=== PATIENT | male | born 1940 | race Caucasian/White ===

== ENCOUNTER 2017-12-07 18:12 | Inpatient (IN) | payer OTHER, MEDICARE ==
[~2017-12-07] VITALS: Ht 177.8 cm; Wt 94.5 kg
[~2017-12-07 18:12] MED LIST: ATOR20TA PO; BENA25TA8 PO; DIGO.125 PO; HYDR-3129 PO; LANTINJ SC; NOVO7030P2 SQ; PARO40TA PO; TERA5CAP3 PO
[2017-12-07 18:40] VITALS: BP 166/53; PULSE 50; RESP 18; TEMP 98.6; O2SAT 99
[2017-12-07 18:50] LABS: AUTOMATED NEUTROPHIL # 5.6 TH/MM3 (1.8-7.7); BASOPHIL % 0.4 % (0.0-2.0); EOSINOPHIL # 0.3 TH/MM3 (0-0.4); EOSINOPHIL % 2.7 % (0.0-4.0); HEMATOCRIT 33.1 % (39.0-51.0); HEMOGLOBIN 11.6 GM/DL (13.0-17.0); LYMPH % 32.4 % (9.0-44.0); LYMPHOCYTE # 3.1 TH/MM3 (1.0-4.8); MEAN CELL VOLUME 97.9 FL (80.0-100.0); MEAN CORPUSCULAR HEMOGLOBIN 34.3 PG (27.0-34.0); MEAN PLATELET VOLUME 7.7 FL (7.0-11.0); MONO % 6.1 % (0.0-8.0); MONOCYTE # 0.6 TH/MM3 (0-0.9); NEUT % 58.4 % (16.0-70.0); PLATELET COUNT 154 TH/MM3 (150-450); RED BLOOD COUNT 3.38 MIL/MM3 (4.50-5.90); RED CELL DISTRIBUTION WIDTH 13.5 % (11.6-17.2); WHITE BLOOD COUNT 9.6 TH/MM3 (4.0-11.0)
[2017-12-07 18:57] LABS: ALBUMIN 3.4 GM/DL (3.4-5.0); AST (GOT) 22 U/L (15-37); BICARBONATE 23.6 MEQ/L (21.0-32.0); BLOOD UREA NITROGEN 25 MG/DL (7-18); CALCIUM 8.9 MG/DL (8.5-10.1); CHLORIDE 107 MEQ/L (98-107); CREATININE 1.84 MG/DL (0.60-1.30); GLOMERULAR FILTRATION RATE 36 ML/MIN (>89); GLUCOSE,RANDOM 260 MG/DL (74-106); SODIUM (NA) 138 MEQ/L (136-145)
[2017-12-07 18:58] LABS: ALT (GPT) 21 U/L (12-78)
[2017-12-07 19:00] LABS: ALKALINE PHOSPHATASE 89 U/L (45-117); TOTAL BILIRUBIN ADULT 0.3 MG/DL (0.2-1.0)
--- NOTE | 2017-12-07 19:44 | PD ---
HPI Chief Complaint: Psychiatric Symptoms Time Seen by Provider: 19:20 Travel History International Travel<30 days: No Contact w/Intl Traveler<30days: No Traveled to known affect area: No History of Present Illness HPI 77-year-old white male presents emergency Department under [employer] act by PD. Patient states that he had just gotten home from [facility] this week after being evaluated for several days for dizziness. He states that he has also had some exertional dyspnea. He was evaluated by Dr. Swanson in the hospital. He was medically cleared and released and went home. Patient stated to his that he would rather than feel dizzy and short of breath at times. He has a 45 caliber handgun. The [employer] act stated that it would only take one bullet. The patient here denies any true suicidal ideation. No homicidal ideation. He does admit to dyspnea with exertion as well as dizziness. He reports it as a vertigo type room spinning. He denies any chest pain. No nausea vomiting. No abdominal pain. No urinary symptoms. No toxic ingestions. He states it is been compliant with his medications. 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) Endocrine: Yes Gastrointestinal Disorders: Yes (HX COLON CANCER ) GERD: No Glaucoma: No Genitourinary: Yes (ENLARGED PROSTATE; UTI ) Headaches: No Hepatitis: No Hiatal Hernia: No Hypertension: Yes Immune Disorder: No Implanted Vascular Access Dvce: Yes Kidney Stones: No Musculoskeletal: Yes (ARTHRITIS ) Neurologic: Yes (PAIN RADIATING TO LEFT LEG) Psychiatric: Yes (DEPRESSION) Reproductive: No Respiratory: No Migraines: No Myocardial Infarction: No Radiation Therapy: No Renal Failure: No Seizures: No Sleep Apnea: No Thyroid Disease: No Ulcer: No Tetanus Vaccination: < 5 Years Past Surgical History Abdominal Surgery: Yes (COLON SURGERY, CHOLECYSTECTOMY) AICD: No Appendectomy: No Arteriovenous Shunt: No Body Medical Devices: NONE Cardiac Surgery: No Cholecystectomy: Yes Ear Surgery: No Endocrine Surgery: No Eye Surgery: No Genitourinary Surgery: No Gynecologic Surgery: No Insulin Pump: No Joint Replacement: No Neurologic Surgery: Yes (LUMBAR SPAINE PARTIAL LAMINECTOMY) Oral Surgery: No Pacemaker: No Thoracic Surgery: No Other Surgery: Yes Social History Alcohol Use: No Tobacco Use: No Substance Use: No Allergies-Medications (Allergen,Severity, Reaction): Coded Allergies: No Known Allergies (Verified , 11/09/13) Reported Meds & Prescriptions Reported Meds & Active Scripts Active Reported Benadryl (Diphenhydramine HCl) 25 Mg Tab 25 Mg PO DAILY Lantus Solostar (Insulin Glargine) 100 Units/Ml Vial 30 Units SC HS Hazel 10/325 (Hydrocodone-Acetaminophen) 10 Mg/325 Mg Tab 1 Tab PO Q6H PRN 10/500 Atorvastatin Calcium 20 Mg Tab 20 Mg PO HS Terazosin Hcl (Terazosin HCl) 5 Mg Cap 5 Mg PO BID Novolin 70/30 (Insulin Human Isoph/Insulin Regular) 100 Units/Ml Inj 60 SQ DAILY@1600 Lanoxin (Digoxin) 0.125 Mg Tab 0.125 Mg PO DAILY Paxil (Paroxetine HCl) 40 Mg Tab 60 Mg PO DAILY Novolin 70/30 (Insulin Human Isoph/Insulin Regular) 100 Units/Ml Inj 90 Units SQ DAILY Review of Systems Except as stated in HPI: all other systems reviewed are Neg General / Constitutional: No: Fever, Chills Eyes: No: Blurred Vision, Photophobia HENT: No: Sore Throat, Congestion Cardiovascular: Positive: Dyspnea on exertion, No: Chest Pain or Discomfort, Diaphoresis Respiratory: Positive: Shortness of Breath, No: Cough Gastrointestinal: No: Nausea, Vomiting Genitourinary: No: Hematuria Musculoskeletal: Positive: Arthralgias Skin: Positive Rash (bruising) Psychiatric: Positive: Depression, Mood Disorder, No: Anxiety, Suicidal Ideations, Disorder of Thought, Substance Abuse, Homicidal Ideation Physical Exam Narrative GENERAL: Well-nourished, well-developed patient. SKIN: Warm and dry. Patient has an abrasion to the right wrist from handcuffs with bruising. HEAD: Normocephalic and atraumatic. EYES: No scleral icterus. No injection or drainage. ENT: No nasal drainage noted. Mucous membranes pink. Airway patent. NECK: Supple, trachea midline. Moves head freely without obvious discomfort. CARDIOVASCULAR: Regular rate and rhythm loud blowing aortic and mitral murmurs, no gallops, or rubs. RESPIRATORY: Breath sounds equal bilaterally. No accessory muscle use. GASTROINTESTINAL: Abdomen soft, non-tender, nondistended. Old surgical scar in the right abdomen EXTREMITIES: No cyanosis or edema. Old scar right upper arm BACK: Nontender without obvious deformity. No CVA tenderness. NEURO: Patient is alert and oriented. no sensorimotor deficits. Nonfocal. Normal speech. PSYCH: No delusions. No auditory or visual hallucinations. Data Data Last Documented VS Vital Signs Date Time Temp Pulse Resp B/P (MAP) Pulse Ox O2 Delivery O2 Flow Rate FiO2 12/07/17 18:40 98.6 50 18 166/53 (90) 99 Orders Orders Complete Blood Count With Diff (12/07/17 18:21) Comprehensive Metabolic Panel (12/07/17 18:21) Psych Screen (12/07/17 18:21) Labs Laboratory Tests Test 12/07/17 18:35 White Blood Count 9.6 TH/MM3 Red Blood Count 3.38 MIL/MM3 Hemoglobin 11.6 GM/DL Hematocrit 33.1 % Mean Corpuscular Volume 97.9 FL Mean Corpuscular Hemoglobin 34.3 PG Mean Corpuscular Hemoglobin Concent 35.0 % Red Cell Distribution Width 13.5 % Platelet Count 154 TH/MM3 Mean Platelet Volume 7.7 FL Neutrophils (%) (Auto) 58.4 % Lymphocytes (%) (Auto) 32.4 % Monocytes (%) (Auto) 6.1 % Eosinophils (%) (Auto) 2.7 % Basophils (%) (Auto) 0.4 % Neutrophils # (Auto) 5.6 TH/MM3 Lymphocytes # (Auto) 3.1 TH/MM3 Monocytes # (Auto) 0.6 TH/MM3 Eosinophils # (Auto) 0.3 TH/MM3 Basophils # (Auto) 0.0 TH/MM3 CBC Comment DIFF FINAL Differential Comment Blood Urea Nitrogen 25 MG/DL Creatinine 1.84 MG/DL Random Glucose 260 MG/DL Total Protein 7.0 GM/DL Albumin 3.4 GM/DL Calcium Level 8.9 MG/DL Alkaline Phosphatase 89 U/L Aspartate Amino Transf (AST/SGOT) 22 U/L Alanine Aminotransferase (ALT/SGPT) 21 U/L Total Bilirubin 0.3 MG/DL Sodium Level 138 MEQ/L Potassium Level 4.5 MEQ/L Chloride Level 107 MEQ/L Carbon Dioxide Level 23.6 MEQ/L Anion Gap 7 MEQ/L Estimat Glomerular Filtration Rate 36 ML/MIN MDM Medical Decision Making Medical Screen Exam Complete: Yes Emergency Medical Condition: Yes Medical Record Reviewed: Yes Interpretation(s) Laboratory Tests Test 12/07/17 18:35 White Blood Count 9.6 TH/MM3 Red Blood Count 3.38 MIL/MM3 Hemoglobin 11.6 GM/DL Hematocrit 33.1 % Mean Corpuscular Volume 97.9 FL Mean Corpuscular Hemoglobin 34.3 PG Mean Corpuscular Hemoglobin Concent 35.0 % Red Cell Distribution Width 13.5 % Platelet Count 154 TH/MM3 Mean Platelet Volume 7.7 FL Neutrophils (%) (Auto) 58.4 % Lymphocytes (%) (Auto) 32.4 % Monocytes (%) (Auto) 6.1 % Eosinophils (%) (Auto) 2.7 % Basophils (%) (Auto) 0.4 % Neutrophils # (Auto) 5.6 TH/MM3 Lymphocytes # (Auto) 3.1 TH/MM3 Monocytes # (Auto) 0.6 TH/MM3 Eosinophils # (Auto) 0.3 TH/MM3 Basophils # (Auto) 0.0 TH/MM3 CBC Comment DIFF FINAL Differential Comment Blood Urea Nitrogen 25 MG/DL Creatinine 1.84 MG/DL Random Glucose 260 MG/DL Total Protein 7.0 GM/DL Albumin 3.4 GM/DL Calcium Level 8.9 MG/DL Alkaline Phosphatase 89 U/L Aspartate Amino Transf (AST/SGOT) 22 U/L Alanine Aminotransferase (ALT/SGPT) 21 U/L Total Bilirubin 0.3 MG/DL Sodium Level 138 MEQ/L Potassium Level 4.5 MEQ/L Chloride Level 107 MEQ/L Carbon Dioxide Level 23.6 MEQ/L Anion Gap 7 MEQ/L Estimat Glomerular Filtration Rate 36 ML/MIN Differential Diagnosis MDM: High Differential diagnoses: Schizophrenia, schizoaffective disorder, bipolar, anxiety, depression, adjustment reaction, mood disorder NOS, ODD, depressive disorder NOS, dementia, dementia with agitation, psychosis NOS, substance induced mood disorder, DMDD, Asperger syndrome, infection,electrolyte abnormality, malingering. Narrative Course Mental health screening discussed with the patient. Psychiatric screen ordered. The patient is been medically cleared. He is oriented been evaluated at [facility] for his complaints of dizziness and dyspnea. 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 I see no reason for any additional lab testing at this time. This is medical clearance for psychiatric admission Diagnosis Primary Impression: Medical clearance for psychiatric admission Condition: Russell Perez Dec 07, 2017 19:44
[2017-12-07] MEDS ORDERED: LANTUS2P SQ (21:31)
[2017-12-07] MEDS ORDERED: CART120C PO (21:31)
[2017-12-07] MEDS ORDERED: PARO7.5C PO (21:31)
[2017-12-07] MEDS ORDERED: ASPI-516 CHEW (21:31)
[2017-12-07] MEDS ORDERED: ATOR20TA15 PO (21:31)
[2017-12-07] MEDS ORDERED: NOVORP2 SQ (21:31)
[2017-12-08] MEDS ORDERED: hydrOXYzine HCL 50 MG TAB PO PRN (00:15)
[2017-12-08] MEDS ORDERED: ACETAMINOPHEN 325 MG TAB PO PRN (00:15)
[2017-12-08] MEDS ORDERED: diphenhydrAMINE HCL 50 MG/ML VIAL IM PRN (00:15)
[2017-12-08] MEDS ORDERED: diphenhydrAMINE HCL 50 MG CAP PO PRN (00:15)
[2017-12-08] MEDS ORDERED: GLUCAGON 1 MG/ML VIAL OTHER PRN (00:15)
[2017-12-08] MEDS ORDERED: diphenhydrAMINE HCL 50 MG CAP - HS PRN PO (00:15)
[2017-12-08] MEDS ORDERED: diphenhydrAMINE HCL 50 MG/ML VIAL - HS PRN IM (00:15)
[2017-12-08] MEDS ORDERED: DEXTROSE 50% IN WATER 50 ML VIAL(D50) IV PUSH PRN (00:15)
[2017-12-08] MEDS ORDERED: MAGNESIUM HYDROXIDE SUSP 30 ML CUP PO PRN (00:15)
[2017-12-08] MEDS ORDERED: ALUMINUM/MAGNESIUM/SIMETH 30 ML CUP PO PRN (00:15)
[2017-12-08 02:30] VITALS: BP 180/76; PULSE 62; RESP 18; TEMP 97.9; O2SAT 97
[2017-12-08 06:00] VITALS: BP 158/66; PULSE 59; RESP 18; TEMP 98; O2SAT 97
[2017-12-08] MEDS: LOW DOSE INSULIN NOVOLOG SUPPLEMENTAL SCALE SQ SCH ×4 (08:00→20:59)
[2017-12-08] MEDS: NICOTINE 21 MG/24 HR PATCH T-DERMAL SCH (09:00)
[2017-12-08] MEDS: ASPIRIN 81 MG CHEW TAB CHEW SCH (09:52)
[2017-12-08 10:03] LABS: BICARBONATE 27.3 MEQ/L (21.0-32.0); BLOOD UREA NITROGEN 20 MG/DL (7-18); CALCIUM 9.1 MG/DL (8.5-10.1); CHLORIDE 108 MEQ/L (98-107); CREATININE 1.55 MG/DL (0.60-1.30); GLOMERULAR FILTRATION RATE 43 ML/MIN (>89); GLUCOSE,RANDOM 83 MG/DL (74-106); SODIUM (NA) 141 MEQ/L (136-145)
[2017-12-08 10:04] LABS: CHOLESTEROL 132 MG/DL (120-200); TRIGLYCERIDES 94 MG/DL (42-150)
[2017-12-08 10:12] LABS: CHOLESTEROL/ HDL RATIO 2.35 RATIO; LDL CHOLESTEROL 57 MG/DL (0-99)
[2017-12-08 14:52] LABS: HEMOGLOBIN A1C 8.9 % (4.3-6.0)
[2017-12-08] MEDS ORDERED: ASPIRIN 81 MG CHEW TAB CHEW SCH (15:45)
[2017-12-08] MEDS ORDERED: PILL SPLITTER OTHER PRN (16:00)
[2017-12-08] MEDS: PARoxetine HCL 20 MG TAB PO SCH (16:50)
--- NOTE | 2017-12-08 18:38 | HHI.HP ---
Provisional Diagnosis Admission Date Dec 07, 2017 at 23:54 [place] I. Adjustment disorder with depressed mood Certification of Person's Competence To Provide Express and Informed Consent I have personally examined Russell Su , a person being served at [facility] on, Dec 08, 2017 18:24. Express and informed consent means consent voluntarily given in writing, by a competent person, after sufficient explanation and disclosure of the subject matter involved to enable the person to make a knowing and willful decision without any element of force, fraud, deceit, duress, or other form of constraint or coercion. This person is 18 years of age or older, is not now known to be incompetent to consent to treatment with a guardian advocate, and does not have a health care surrogate or proxy currently making medical treatment decisions. I have found this person to be one of the following: [xxx] Competent to provide express and informed consent, as defined above, for voluntary admission to this facility and is competent to provide express and informed consent for treatment. He/she has the consistent capacity to make well reasoned, willful, and knowing decisions concerning his or her medical or mental health treatment. The person fully and consistently understands the purpose of the admission for examination/placement and is fully capable of personally exercising all rights [place] Incompetent to provide express and informed consent to voluntary admission, and this is incompetent to provide express and informed consent to treatment. The person must be transferred to involuntary status and a petition for a guardian advocate filed with the Circuit Court. [] Refusing to provide express and informed consent to voluntary admission but is competent to provide express and informed consent for treatment. The person must be discharged or transferred to involuntary status. Form shall be completed within 24 hours of a person's arrival at the receiving facility and filed in the clinical record of each person: 1. Admitted on a voluntary basis 2. Permitted to provide express and informed consent to his/her own treatment 3. Allowed to transfer from involuntary to voluntary status 4. Prior to permitting a person to consent to his or her own treatment after having been previously found incompetent to consent to treatment. History of Present Illness Capacity: Has Capacity HPI Patient is a 37-year-old man, , , has access to firearms in the home, with a past psychiatric history of depression, no previous psychiatric admissions, suicide attempts or self-injurious behavior, no substance use history, past medical history significant for A. fib, history of colon cancer, diabetes, who was brought in under [employer] act by police after patient had stated that he would rather than feel dizzy when she was recently discharged from [facility] for workup for the same and patient was admitted to the inpatient psychiatry unit for further evaluation and manage her bed, cooperative. Patient is alert and oriented 3, stated that he was recently on the medical floor 1 week ago and after having been discharged he stated that he continued to have dizziness and stated to his "I do not want to live like this, I do not want to live if my head is spinning". Patient states that his had called police concerned about his statements which she was brought to the hospital for further evaluation under [employer] act. Patient reports that prior to his admission he has had adequate sleep, no difficulty or change in appetite, energy or concentration but states that he is "always depressed" and at this time states that his mood is "good" denying any suicide ideations but does admit to feeling "wishing to be "" at times. He reports that stressors at this time that made him feel this way are financial difficulties and missing his children. Family psychiatric history: Denies Past psychiatric history: no prior psychiatric diagnosis, no prior psychiatric admissions, no prior suicide attempt or self injury behavior. No reported previous medication trials. No outpatient mental health provider at this time. Substance use history: Denies Past medical history: A. fib, history of colon cancer, diabetes Allergies: NKDA Social history: , , has access to firearms in the home, no legal history Collateral contact: -Reina Su: [phone] Review of Systems Except as stated in HPI: all other systems reviewed are Neg Past Psych History Psychological trauma history Denies Violence risk - others (6 mos) Low Violence risk - self (6 mos) Elevated due to recent statements of not wanting to be alive Substance Abuse History Drugs/Alcohol past 12 months Denies Past Family Social History Coded Allergies: No Known Allergies (Verified Allergy, Unknown, 12/08/17) Reported Medications Insulin Human Regular Inj (Novolin R Inj) 1,000 Unit/10 Ml Vial, SQ ONCE for Blood Sugar Management, #1 INJECTION 0 Refills 12/07/17 Insulin Glargine Inj (Lantus Inj) 1,000 Unit/10 Ml Vial, SQ HS for Blood Sugar Management, VIAL 0 Refills 12/07/17 Paroxetine (Paroxetine) 7.5 Mg Capsule, PO DAILY, CAP 0 Refills 12/07/17 Atorvastatin (Atorvastatin) 20 Mg Tab, 20 MG PO HS for Cholesterol Management, # 30 TAB 0 Refills 12/07/17 Aspirin (Aspirin) 81 Mg Chew, 81 MG CHEW DAILY, TAB 0 Refills 12/07/17 Diltiazem ER 24 HR (Cartia Xt) 120 Mg Caper, 120 MG PO DAILY, #30 CAP 0 Refills 12/07/17 Discontinued Reported Medications Diphenhydramine 25 mg tab (Benadryl 25 mg tab) 25 Mg Tab, 25 MG PO DAILY, TAB 11/01/13 Insulin Glargine (Solostar) Pen (Lantus Solostar Pen) 100 Units/Ml Vial, 30 UNITS SC HS, VIAL 11/01/13 Hydrocodone-Acetaminophen 10-325 mg ([place] 10-325 mg) 10 Mg/325 Mg Tab, 1 TAB PO Q6H Y, TAB 10/500 11/01/13 Atorvastatin 20 mg (Atorvastatin 20 mg tab) 20 Mg Tab, 20 MG PO HS, TAB 11/01/13 Terazosin Hcl (Terazosin Hcl) 5 Mg Cap, 5 MG PO BID, CAP 11/01/13 Insulin Human Isophan/Regular (Novolin 70/30) 100 Units/Ml Inj, 60 SQ DAILY@ 1600, #10 ML 07/04/11 Digoxin (Lanoxin) 0.125 Mg Tab, 0.125 MG PO DAILY 07/04/11 Paroxetine Hcl (Paxil) 40 Mg Tab, 60 MG PO DAILY 12/14/10 Insulin Human Isophan/Regular (Novolin 70/30) 100 Units/Ml Inj, 90 UNITS SQ DAILY, #10 ML 07/04/11 Current Medications Medications (Trade) Dose Ordered Sig/Lisbet Route Start Time Stop Time Status Last Admin (Atarax) 50 mg Q6H PRN PO 12/08/17 00:15 (Benadryl) 50 mg Q6H PRN PO 12/08/17 00:15 (Benadryl Inj) 50 mg Q6H PRN IM 12/08/17 00:15 (Benadryl) 50 mg HS PRN PO 12/08/17 00:15 (Benadryl Inj) 50 mg HS PRN IM 12/08/17 00:15 (Tylenol) 650 mg Q4H PRN PO 12/08/17 00:15 (Milk Of Magnesia Liq) 30 ml DAILY PRN PO 12/08/17 00:15 (Mag-Al Plus Susp Liq) 30 ml Q6H PRN PO 12/08/17 00:15 (Habitrol 21 Mg Patch.24 Hr) 1 patch DAILY T-DERMAL 12/08/17 09:00 Miscellaneous Information 1 HS T-DERMAL 12/08/17 21:00 (D50w (Vial) Inj) 50 ml UNSCH PRN IV PUSH 12/08/17 00:15 (Glucagon Inj) 1 mg UNSCH PRN OTHER 12/08/17 00:15 (NovoLOG SUPPLEMENTAL SCALE) 1 ACHS SLIDING SCALE SQ 12/08/17 08:00 12/08/17 11:29 (Aspirin Chew) 81 mg DAILY CHEW 12/08/17 09:00 12/08/17 09:52 (Paxil) 10 mg DAILY PO 12/08/17 15:45 12/08/17 16:50 (Lipitor) 20 mg HS PO 12/08/17 21:00 (Cardizem Cd) 120 mg DAILY PO 12/09/17 09:00 (Pill Splitter) 1 ea UNSCH PRN OTHER 12/08/17 16:00 Family Psych History Denies Social History , , has access to firearms in the home, no legal history Patient's Strengths (min. 2) Verbal and communicative Physical Exam Patient found to be in no acute distress, no noted gross motor abnormalities, no tremors of EPS, no noted psychomotor agitation of retardation. Vital Signs Vital Signs Date Time Temp Pulse Resp B/P (MAP) Pulse Ox O2 Delivery O2 Flow Rate FiO2 12/08/17 06:00 98.0 59 18 158/66 (96) 97 Lab Results Labs reviewed Test 12/07/17 18:35 12/08/17 00:27 12/08/17 08:10 White Blood Count 9.6 TH/MM3 Red Blood Count 3.38 MIL/MM3 Hemoglobin 11.6 GM/DL Hematocrit 33.1 % Mean Corpuscular Volume 97.9 FL Mean Corpuscular Hemoglobin 34.3 PG Mean Corpuscular Hemoglobin Concent 35.0 % Red Cell Distribution Width 13.5 % Platelet Count 154 TH/MM3 Mean Platelet Volume 7.7 FL Neutrophils (%) (Auto) 58.4 % Lymphocytes (%) (Auto) 32.4 % Monocytes (%) (Auto) 6.1 % Eosinophils (%) (Auto) 2.7 % Basophils (%) (Auto) 0.4 % Neutrophils # (Auto) 5.6 TH/MM3 Lymphocytes # (Auto) 3.1 TH/MM3 Monocytes # (Auto) 0.6 TH/MM3 Eosinophils # (Auto) 0.3 TH/MM3 Basophils # (Auto) 0.0 TH/MM3 CBC Comment DIFF FINAL Differential Comment Blood Urea Nitrogen 25 MG/DL 20 MG/DL Creatinine 1.84 MG/DL 1.55 MG/DL Random Glucose 260 MG/DL 83 MG/DL Total Protein 7.0 GM/DL Albumin 3.4 GM/DL Calcium Level 8.9 MG/DL 9.1 MG/DL Alkaline Phosphatase 89 U/L Aspartate Amino Transf (AST/SGOT) 22 U/L Alanine Aminotransferase (ALT/SGPT) 21 U/L Total Bilirubin 0.3 MG/DL Sodium Level 138 MEQ/L 141 MEQ/L Potassium Level 4.5 MEQ/L 4.4 MEQ/L Chloride Level 107 MEQ/L 108 MEQ/L Carbon Dioxide Level 23.6 MEQ/L 27.3 MEQ/L Anion Gap 7 MEQ/L 6 MEQ/L Estimat Glomerular Filtration Rate 36 ML/MIN 43 ML/MIN Ethyl Alcohol Level LESS THAN 3 MG/DL Urine Opiates Screen NEG Urine Barbiturates Screen NEG Urine Amphetamines Screen NEG Urine Benzodiazepines Screen NEG Urine Cocaine Screen NEG Urine Cannabinoids Screen NEG Hemoglobin A1c 8.9 % Triglycerides Level 94 MG/DL Cholesterol Level 132 MG/DL LDL Cholesterol 57 MG/DL HDL Cholesterol 56.0 MG/DL Cholesterol/HDL Ratio 2.35 RATIO Mental Status Examination Appearance: Appropriate Consciousness: Alert Orientation: Person, Place, Date/Time Motor Activity: Normal gait Speech: Unremarkable Language: Adequate Fund of Knowledge: Inadequate Attention and Concentration: Adequate Memory: Unremarkable Mood: Sad Affect: Sad Thought Process & Associations: Intact, Linear Thought Content: Appropriate Hallucination Type: None Delusion Type: None Suicidal Ideation: Yes (Thoughts of wishing to be at times but denies today) Suicidal Plan: No Suicidal Intention: No Homicidal Ideation: No Homicidal Plan: No Homicidal Intention: No Insight: Fair Judgment: Impulsive Assessment & Plan Problem List: (1) Adjustment disorder with depressed mood ICD Codes: F43.21 - Adjustment disorder with depressed mood Assessment & Plan Estimated LOS: 3-5 days. Patient is a 77-year-old man, , domiciled with , , with a past psychiatric history of depression no previous admissions, suicide, self injury behavior was brought in under [employer] act due to making suicidal statements. Patient reports having some depressed mood with thoughts of wishing to be at times but denies at this time. Patient is at increased risk for self-harm to the recent reports of wishing to be along, depressed mood, concern from , and patient having access to firearms in the home. Patient will be continued on Paxil 10 mg p.o. daily for depression. Hospitalist consult was requested for management of chronic medical issues. We will continue to monitor mood and behavior. Collateral formation pending. Social work intervention for psychosocial assessment. Discharge planning in progress Discharge Planning Return back to his residence once psychiatrically cleared Kareem Woodard MD Dec 08, 2017 18:38
[2017-12-08] MEDS ORDERED: REMOVE OLD NICOTINE PATCH T-DERMAL SCH (21:00)
[2017-12-08] MEDS ORDERED: ATORVASTATIN 20 MG TAB PO SCH ×2 (21:00)
[2017-12-09 05:02] VITALS: BP 170/64; PULSE 62; RESP 16; TEMP 98; O2SAT 96
[2017-12-09] MEDS: LOW DOSE INSULIN NOVOLOG SUPPLEMENTAL SCALE SQ SCH (07:30)
[2017-12-09 08:58] VITALS: BP 140/83; RESP 18; O2SAT 98
[2017-12-09] MEDS: ASPIRIN 81 MG CHEW TAB CHEW SCH (09:00)
[2017-12-09] MEDS: PARoxetine HCL 20 MG TAB PO SCH (09:00)
[2017-12-09] MEDS: NICOTINE 21 MG/24 HR PATCH T-DERMAL SCH (09:00)
[2017-12-09] MEDS ORDERED: DILTIAZEM-CD 120 MG CAP ER PO SCH (09:00)
[2017-12-09 09:01] VITALS: PULSE 38
[2017-12-09 09:25] VITALS: BP_SYST 137; BP_SYST 157; BP_DIAS 41; BP_DIAS 65
--- NOTE | 2017-12-09 09:38 | PD.CONS ---
HPI Service [facility] Hospitalists Consult Requested By Reason for Consult A. fib, dizziness, history of colon cancer with ongoing dizziness. Primary Care Physician Unknown Diagnoses: History of Present Illness 77-year-old male with past medical history significant for atrial fibrillation, diabetes, hyperlipidemia, GERD, and colon cancer with resection who presents to [place] under Barron act by PD after making concerning statements to . Patient apparently was recently at [facility] and evaluated for dizziness and shortness of breath. I called to get a better history on this. reports that patient was seen at [facility] and told that he had a sinus infections and allergies which was causing his dizziness. He was treated for the sinus infection and treated with meclizine 25 mg 3 times daily, reports this did not alleviate dizziness therefore it was discontinued. He was also treated with bedtime dose antihistamine. Patient was home when he made concerning statements to and therefore was Barron acted and brought to [place] for evaluation. reports that patient has been having dizziness along with a low heart rate on and off. His regular ehs manager is Dr. Swanson reports that he recently underwent stress test on the but does not yet know the results. Patient also with a history of atrial fibrillation for which he was on Coumadin however due to recurrent epistaxis discontinued. reports that patient has been having shortness of breath for the past several weeks as well. Patient states that the dizziness has been going on for weeks and shortness of breath is worse on exertion, no reports of syncopal episodes. He does report feeling hot and sweaty during periods of dizziness. Denies any nausea, vomiting, fevers, chills or diarrhea. No reports of black or bloody stools. Review of Systems Except as stated in HPI: all other systems reviewed are Neg Past Family Social History Allergies: Coded Allergies: No Known Allergies (Verified Allergy, Unknown, 12/08/17) Past Medical History Atrial fibrillation Diabetes Hyperlipidemia GERD Colon cancer Past Surgical History Colon resection with anastomosis due to cancer Cataract removal Reported Medications Reported Meds & Active Scripts Active Reported Novolin R Inj (Insulin Human Regular) 1,000 Unit/10 Ml Vial Unknown Dose SQ ONCE Lantus Inj (Insulin Glargine) 1,000 Unit/10 Ml Vial Unknown Dose SQ HS Paroxetine 7.5 Mg Capsule Unknown Dose PO DAILY Atorvastatin (Atorvastatin Calcium) 20 Mg Tab 20 Mg PO HS Aspirin 81 Mg Chew 81 Mg CHEW DAILY Cartia Xt (Diltiazem ER 24 HR) 120 Mg Caper 120 Mg PO DAILY Active Ordered Medications Current Medications Medications (Trade) Dose Ordered Sig/Lisbet Route Start Time Stop Time Status Last Admin (Atarax) 50 mg Q6H PRN PO 12/08/17 00:15 12/08/17 18:42 (Benadryl) 50 mg Q6H PRN PO 12/08/17 00:15 (Benadryl Inj) 50 mg Q6H PRN IM 12/08/17 00:15 (Benadryl) 50 mg HS PRN PO 12/08/17 00:15 12/08/17 21:17 (Benadryl Inj) 50 mg HS PRN IM 12/08/17 00:15 (Tylenol) 650 mg Q4H PRN PO 12/08/17 00:15 (Milk Of Magnesia Liq) 30 ml DAILY PRN PO 12/08/17 00:15 (Mag-Al Plus Susp Liq) 30 ml Q6H PRN PO 12/08/17 00:15 (Habitrol 21 Mg Patch.24 Hr) 1 patch DAILY T-DERMAL 12/08/17 09:00 Miscellaneous Information 1 HS T-DERMAL 12/08/17 21:00 (D50w (Vial) Inj) 50 ml UNSCH PRN IV PUSH 12/08/17 00:15 (Glucagon Inj) 1 mg UNSCH PRN OTHER 12/08/17 00:15 (NovoLOG SUPPLEMENTAL SCALE) 1 ACHS SLIDING SCALE SQ 12/08/17 08:00 12/09/17 07:30 (Aspirin Chew) 81 mg DAILY CHEW 12/08/17 09:00 12/08/17 09:52 (Paxil) 10 mg DAILY PO 12/08/17 15:45 12/09/17 09:00 (Lipitor) 20 mg HS PO 12/08/17 21:00 12/08/17 20:58 (Cardizem Cd) 120 mg DAILY PO 12/09/17 09:00 (Pill Splitter) 1 ea UNSCH PRN OTHER 12/08/17 16:00 Family History Mother: [place] Father:[place] (unknown what kind) Social History Tobacco use: Quit 30 years ago, used to smoke half a pack per day Alcohol use: Denies Illicit drug use: Denies Physical Exam Vital Signs Vital Signs Date Time Temp Pulse Resp B/P (MAP) Pulse Ox O2 Delivery O2 Flow Rate FiO2 12/09/17 09:01 38 12/09/17 08:58 18 140/83 (102) 98 12/09/17 05:02 98.0 62 16 170/64 (99) 96 Physical Exam GENERAL: This is a well-nourished, well-developed patient, in no apparent distress. SKIN: No rashes, ecchymoses or lesions. Cool and dry. HEAD: Atraumatic. Normocephalic. No temporal or scalp tenderness. EYES: Pupils equal round and reactive. Extraocular motions intact. No scleral icterus. No injection or drainage. ENT: Nose without bleeding, purulent drainage or septal hematoma. Throat without erythema. Uvula midline. Airway patent. NECK: Trachea midline. No JVD or lymphadenopathy. Supple, nontender. CARDIOVASCULAR: Bradycardic rate with murmur, no gallops, or rubs. RESPIRATORY: Clear to auscultation. Breath sounds equal bilaterally. No wheezes , rales, or rhonchi. GASTROINTESTINAL: Abdomen soft, non-tender, nondistended. No guarding. MUSCULOSKELETAL: Extremities without clubbing, cyanosis, or edema. No joint tenderness, effusion, or edema noted. NEUROLOGICAL: Awake and alert oriented to month, time and place. Cranial nerves II through XII intact. Motor and sensory grossly within normal limits. Five out of 5 muscle strength in all muscle groups. Normal speech. Result Diagram: 12/07/17 1835 12/08/17 0810 Assessment and Plan Assessment and Plan 77-year-old male with past medical history of atrial fibrillation, diabetes, hyperlipidemia, GERD, and colon resection admitted Barron act to inpatient psychiatry after making threatening statements. Bradycardia -Patient with complaints of dizziness along with feeling hot and sweaty. -Stat EKG reviewed, heart rate 41 reading ideal ventricular rate, ? Heart block -Transfer order to [facility] with telemetry, consult placed for cardiology, discussed with via phone at 10:31a.m. -Discussed with patient that he will be transferred to a different floor for closer monitoring of his heart along with evaluation by ehs manager, he is agreeable to plan and verbalizes understanding. Patient is alert, oriented, and I believe understands current situation. Call was also placed to Reina at phone #[phone] to make her aware that patient would be transferred to a different floor for closer cardiac monitoring. I also discussed with cardiology consult for further recommendations and evaluation, also verbalized understanding and was agreeable to plan. (Patient was provided voluntary status on 12/08 by psychiatrist) Call received at 11:32 spoke with regarding patient, floor nurse called psych department and stated that patient was leaving AMA. would like to know if [facility] would like a psych consult to reevaluate for possible barron Act placement. No new V# yet available in EMR. Called nurse at extention [phone] ( Nadine Wheat RN) and discussed patient. Would like to place verbal order for psych consult so that patient can be evaluated DIOMEDES by . Nurse states patent signed AMA and left. Called nurse in 2600 unit to make aware that patient has left the hospital. Discussed with my attending MD . Discussed Condition With , Dr. Orellana, , Lou Olivares RN, Petra Olivares RN, Nadine Tyler RN, and Reina Mamadou Merrill Dec 09, 2017 09:38
--- NOTE | 2017-12-09 11:57 | HHI.DS ---
Psychiatry Discharge Summary Inpatient Psychiatric care?: Yes Advance Directive: No Reason Not Provided: NOT INTERESTED Mental Health AdvanceDirective: No Health Care Proxy: No Admission Admission Date Dec 07, 2017 at 23:54 Admission Diagnosis: (1) Adjustment disorder with depressed mood ICD Code: F43.21 - Adjustment disorder with depressed mood Brief History Patient is a 77-year-old man, , , has access to firearms in the home, with a past psychiatric history of depression, no previous psychiatric admissions, suicide attempts or self-injurious behavior, no substance use history, past medical history significant for A. fib, history of colon cancer, diabetes, who was brought in under [employer] act by police after patient had stated that he would rather than feel dizzy when she was recently discharged from [facility] for workup for the same and patient was admitted to the inpatient psychiatry unit for further evaluation and manage her bed, cooperative. Patient is alert and oriented 3, stated that he was recently on the medical floor 1 week ago and after having been discharged he stated that he continued to have dizziness and stated to his "I do not want to live like this, I do not want to live if my head is spinning". Patient states that his had called police concerned about his statements which she was brought to the hospital for further evaluation under [employer] act. Patient reports that prior to his admission he has had adequate sleep, no difficulty or change in appetite, energy or concentration but states that he is "always depressed" and at this time states that his mood is "good" denying any suicide ideations but does admit to feeling "wishing to be "" at times. He reports that stressors at this time that made him feel this way are financial difficulties and missing his children. Family psychiatric history: Denies Past psychiatric history: no prior psychiatric diagnosis, no prior psychiatric admissions, no prior suicide attempt or self injury behavior. No reported previous medication trials. No outpatient mental health provider at this time. Substance use history: Denies Past medical history: A. fib, history of colon cancer, diabetes Allergies: NKDA Social history: , , has access to firearms in the home, no legal history Collateral contact: -Reina Su: [phone] Tobacco Use In Past 30 Days: No Tobacco Past 30 Days Alcohol Use: Never Hospital Course Pt was admitted voluntarily to inpatient psychiatry and continued on paroxetine 10mg PO Qdaily. Hospitalist service was consulted for medical management. On , he c/o of shortness of breath to RN. He was found to be bradycardic ( HR of 38) with abnormal EKG. Hospitalist was called and pt was transferred to [facility] ICU. PATRICIA Steve called author at 1005 am,informed MD of events and author gave verbal order to discharge pt from psychiatry as he was no longer on unit and had been transferred to medicine service. I spoke with Klel Merrill from hospitalist service after pt transferred and informed her to consult psychiatry so service can follow pt while in medical unit Results Blood Pressure 137 / 41 Vital Signs Date Time Temp Pulse Resp B/P (MAP) Pulse Ox O2 Delivery O2 Flow Rate FiO2 12/09/17 09:25 157/65 (95) 137/41 (73) 12/09/17 09:01 38 12/09/17 08:58 18 98 12/09/17 05:02 98.0 Laboratory Tests Test 12/07/17 18:35 12/08/17 00:27 12/08/17 08:10 Red Blood Count 3.38 MIL/MM3 (4.50-5.90) Hemoglobin 11.6 GM/DL (13.0-17.0) Hematocrit 33.1 % (39.0-51.0) Mean Corpuscular Hemoglobin 34.3 PG (27.0-34.0) Blood Urea Nitrogen 25 MG/DL (7-18) 20 MG/DL (7-18) Creatinine 1.84 MG/DL (0.60-1.30) 1.55 MG/DL (0.60-1.30) Random Glucose 260 MG/DL (74-106) Estimat Glomerular Filtration Rate 36 ML/MIN (>89) 43 ML/MIN (>89) Chloride Level 108 MEQ/L (98-107) Hemoglobin A1c 8.9 % (4.3-6.0) Laboratory Results Test 12/08/17 08:10 Cholesterol Level 132 MG/DL (120-200) HDL Cholesterol 56.0 MG/DL (40.0-60.0) Hemoglobin A1c 8.9 % (4.3-6.0) LDL Cholesterol 57 MG/DL (0-99) Triglycerides Level 94 MG/DL (42-150) Summary of Procedures idioventricular rhythm Pending results at discharge: No Medications # of Antipsychotic meds at D/C: 0 Approp Antipsych med options 1 - Minimum of three failed multiple trials of monotherapy. 2 - Documented plan to taper to monotherapy due to previous use of multiple meds OR cross-taper in progress at D/C. 3 - Documentation of augmentation of Clozapine. 4 - Justification other than those listed in allowable values 1-3, document here : Discharge Discharge Date: Dec 09, 2017 Discharge Diagnosis: (1) Adjustment disorder with depressed mood ICD Code: F43.21 - Adjustment disorder with depressed mood Pt Condition on Discharge: Stable Discharge Disposition: Disch to Another Hospital Discharge Instructions Diet Instructions: Heart Healthy Diet Additional Diet Instructions: follow medical doctor's instructions on receiving unit Activities you can perform: See Additionl Instruction Discharge Time <= 30 minutes Mental Status Examination Appearance: Appropriate Consciousness: Alert Orientation: Person, Place, Date/Time Motor Activity: Normal gait Speech: Unremarkable Language: Adequate Fund of Knowledge: Inadequate Attention and Concentration: Adequate Memory: Unremarkable Mood: Sad Affect: Sad Thought Process & Associations: Intact, Linear Thought Content: Appropriate Hallucination Type: None Delusion Type: None Suicidal Ideation: Yes (Thoughts of wishing to be at times but denies today) Suicidal Plan: No Suicidal Intention: No Homicidal Ideation: No Homicidal Plan: No Homicidal Intention: No Insight: Fair Judgment: Impulsive Discharge/Advance Care Plan Health Problems: (1) Adjustment disorder with depressed mood Goals to promote your health * To prevent worsening of your condition and complications * To maintain your health at the optimal level Directions to meet your goals Take your medications as prescribed Follow your dietary instruction Follow activity as directed Keep your appointments as scheduled Take your immunizations and boosters as scheduled If your symptoms worsen call your PCP, if no PCP go to Urgent Care Center or Emergency Room For 08/05 questions related to your inpatient stay or results of tests pending at discharge, please contact Dr. Aranza Looney at Smoking is Dangerous to Your Health. Avoid second hand smoking Aranza Looney MD Dec 09, 2017 11:57
--- NOTE | 2017-12-09 12:45 | EKG ---
Date Performed: 12/09/2017 Time Performed: 09:24:50 PTAGE: 77 years EKG: SINUS BRADYCARDIA WITH COMPLETE HEART BLOCK WITH JUNCTIONAL ESCAPE RHYTHM RIGHT BUNDLE BRAN CH BLOCK, LEFT ANTERIOR FASCICULAR BLOCK ABNORMAL ECG PREVIOUS TRACING : 11/04/2013 07.36 Compared to previous tracing, current rhythm abnormalities have replaced atrial fibrillation, heart rate has slowed, right bundle branch block and left anterior fascicular block are now evident. DOCTOR: Danny Orellana Interpretating Date/Time 12/09/2017 12:44:07
== END 2017-12-09 11:14 | disposition short-term general hospital (02) | DRG 881 ==
LOC: NEPD 18:12 → NEDA 23:54 → H260 12-08 02:15 → HCPC 12-09 11:08
PROVIDERS: ADMIT Student in an Organized Health Care Education/Training Program; ATTEND Student in an Organized Health Care Education/Training Program
DX: F43.21 Adjustment disorder with depressed mood (principal); I48.91 Unspecified atrial fibrillation; E11.9 Type 2 diabetes mellitus without complications; R00.1 Bradycardia, unspecified; R42 Dizziness and giddiness; E78.5 Hyperlipidemia, unspecified; K21.9 Gastro-esophageal reflux disease without esophagitis; Z85.038 Personal history of other malignant neoplasm of large intestine; Z79.4 Long term (current) use of insulin; Z87.891 Personal history of nicotine dependence
CPT/HCPCS: 80048; 80053; 80061; 80307; 82948; 83036; 85025; 93005; J1815; Q0163